=== PATIENT | male | born 2000 | race Caucasian/White ===

== ENCOUNTER 2020-07-16 08:07 | Emergency (ER) | payer OTHER, SELFPAY ==
--- NOTE | ~2020-07-16 | XR_ITS ---
EXAMINATION: XR chest 1V portable INDICATION: Cough and fever TECHNIQUE: Portable AP chest at 0903 hours COMPARISON: 09/23/2016 FINDINGS: The lungs are free of acute opacities. There is no pleural effusion or pneumothorax. The ca rdiomediastinal silhouette is normal. The visualized osseous structures are unremarkable. IMPRESSION: 1. No acute cardiopulmonary abnormality. Reviewed, dictated and finalized at location A.
[2020-07-16 08:15] VITALS: BP 159/88; PULSE 88; RESP 18; TEMP 37.2; O2SAT 100
--- NOTE | 2020-07-16 08:36 | ED.URI ---
HPI - URI/Sore Throat General Chief Complaint: Upper Respiratory Infection Stated Complaint: cough with asthma Time Seen by Provider: 07/16/20 08:36 Source: patient Mode of arrival: ambulatory Limitations: no limitations History of Present Illness HPI Narrative: Patient is a 20-year-old male with a history of asthma who presents for evaluation of fever and cough. Patient states he has had 2 weeks of low-grade fever of 99 Fahrenheit and productive cough with green sputum production. No hemoptysis. No chest pain, patient reports mild shortness of breath but no current shortness of breath. Patient reports sore throat. Patient states sick contacts are his daughter and who have similar symptoms. Patient denies any current wheezing. He does have albuterol inhaler at home but is almost out. Patient states he was evaluated at [facility] and was told that he had bronchitis and had no other treatment option given. Related Data Allergies Allergy/AdvReac Type Severity Reaction Status Date / Time No Known Allergies Allergy Unknown Unverified 07/01/17 10:26 Review of Systems Review of Systems: Narrative: CONSTITUTIONAL: Reports fever CARDIOVASCULAR: Denies chest pain RESPIRATORY: Reports cough, denies current shortness of breath GASTROINTESTINAL: Denies abdominal pain SKIN: Denies rash MUSCULOSKELETAL: Denies back pain NEUROLOGIC: Denies headache [facility] Past Medical History Medical History (Updated 07/16/20 @ 09:32 by Nina Nguyen MD) Asthma Social History Social History (Updated 07/16/20 @ 09:00 by Nina Nguyen MD) Smoking status: Never smoker Alcohol intake: never Substance use: never Living arrangements: with family Gender identity (if verbalized by the patient): Male Exam Narrative: Exam Narrative: GENERAL: Awake, alert, conversant HEAD: Normocephalic, atraumatic. EYES: PERRLA and EOMI. ENT: Nares clear, no rhinorrhea or epistaxis. Mucous membranes moist. NECK: Supple. CHEST: No respiratory distress, breathing even and non labored HEART: Regular rate, sinus rhythm ABDOMEN:Non distended, non tender EXTREMITIES: Normal range of motion. No edema. SKIN: Warm, dry, no rash. NEURO:No focal deficits. Alert and oriented x3 Course Vital Signs Vital signs: Vital Signs Temperature 37.2 C 07/16/20 08:15 Pulse Rate 88 07/16/20 08:15 Respiratory Rate 18 07/16/20 08:15 Blood Pressure 159/88 H 07/16/20 08:15 Pulse Oximetry 100 07/16/20 08:15 Temperature 37.2 C 07/16/20 08:15 Pulse Rate 88 07/16/20 08:15 Respiratory Rate 18 07/16/20 08:15 Blood Pressure 159/88 H 07/16/20 08:15 Pulse Oximetry 100 07/16/20 08:15 MDM - URI/Sore Throat MDM Narrative Medical decision making narrative: Patient presented for evaluation of cough, low-grade fever. At the time of assessment, ABCs are intact and vital signs are stable. Patient is not having any acute shortness of breath or evidence of active asthma exacerbation. No nausea, vomiting, thus laboratory results not obtained. Chest x-ray without findings of pneumonia or COVID type features. Strep swab was negative. Patient likely has an unspecified viral URI, we will test for COVID given recent indications in the community. Patient not having severe symptoms at this time. He was advised to continue symptomatic treatment for his asthma, we will try a short dose of steroids, and patient will be discharged home with primary care physician follow-up. Differential Diagnosis Differential diagnosis: Likely upper respiratory infection, sinusitis, viral infection and bronchitis Lab Data Labs: Lab Results 07/16/20 Range/Units 09:25 SARS-CoV-2 RNA (RT-PCR) Pending Strep Screen Presumptive Negative *(Reference Range: Negative)* Imaging Data Radiologist's impression: ITS Impressions Chest X-Ray 07/16/20 09:10 IMPRESSION: 1. No acute cardiopulmonary abnormality.
--- NOTE | 2020-07-16 09:29 | PC.NURSE ---
rn at bedside to collect covid swab.
[2020-07-16 10:11] VITALS: BP 149/93; PULSE 92; RESP 18; TEMP 36.9; O2SAT 99
[2020-07-17 11:39] LABS: SARS-CoV-2 RNA PCR Negative
== END 2020-07-16 10:12 | disposition home or self-care (01) ==
PROVIDERS: Emergency Provider Emergency Medicine
DX: J45.909 Unspecified asthma, uncomplicated (principal); J06.9 Acute upper respiratory infection, unspecified; Z20.828 Contact with and (suspected) exposure to other viral communicable diseases
CPT/HCPCS: 71045; 87081; 87635; 87880; 99283; C9803; U0003

== ENCOUNTER 2024-02-08 21:48 | Emergency (ER) | payer SELFPAY ==
[2024-02-08 22:03] VITALS: BP 134/88; PULSE 82; RESP 16; TEMP 36.6; O2SAT 100
--- NOTE | 2024-02-08 22:06 | ECG_ITS ---
Measurements Intervals [place] Rate: 77 P: 23 WV: 156 QRS: 20 QRSD: 110 T: 18 QT: 345 QTc: 391 Interpretive Statements SINUS RHYTHM NORMAL ELECTROCARDIOGRAM NO PREVIOUS ECG AVAILABLE FOR COMPARISON Electronically Signed On 02-09-2024 12:54:19 CDT by Tobi Magana M.D.
[2024-02-08 22:44] LABS: Basophils Absolute Auto 0.1 K/mm3 (0.0-0.1); Eosinophils Absolute Auto 0.3 K/mm3 (0-0.3); Eosinophils Percent Auto 3.1 % (0-4.4); Hemoglobin 15.7 g/dL (14.0-18.0); Immature Granulocyte Absolute 0.01 K/mm3 (0.00-0.031); Immature Granulocyte Percent A 0.1 % (0-0.5); Lymphocytes Absolute Auto 4.64 K/mm3 (0.9-3.2); Lymphocytes Percent Auto 57.9 % (18.3-44.2); Mean Corpuscular HGB Conc 33.4 g/dl (32-36); Mean Corpuscular Hemoglobin 30.7 pg (26-34); Mean Corpuscular Volume 91.8 fl (80-100); Mean Platelet Volume 9.6 fl (7.4-10.4); Monocytes Absolute Auto 0.6 K/mm3 (0.1-0.6); Monocytes Percent Auto 6.9 % (2.6-8.5); Neutrophils Absolute Auto 2.5 K/mm3 (1.3-6.7); Platelet Count Result 277 k/mm3 (150-375); Red Blood Count 5.12 M/mm3 (4.6-6.20); Red Cell Distribution Width 12.6 % (11.5-14.5)
[2024-02-08 23:15] LABS: Alanine Aminotransferase 33 U/L (6-50); Albumin Level 4.4 g/dL (3.5-5.1); Alkaline Phosphatase 64 U/L (38-126); Anion Gap 6 mmol/L (4-12); Aspartate Amino Transferase 26 U/L (17-59); Bilirubin,Total 0.8 mg/dL (0.2-1.3); Blood Urea Nitrogen 20 mg/dL (9-20); Calcium 9.5 mg/dL (8.4-10.2); Carbon Dioxide 25 mmol/L (22-30); Chloride 105 mmol/L (98-107); Estimated CRCL calculation 136 ml/min; Estimated Glomerular Filt Rate > 60; Glucose 99 mg/dL (65-110); Potassium 4.1 mmol/L (3.4-5.0); Sodium 136 mmol/L (137-145)
[2024-02-08 23:18] LABS: Influenza A QL RT-PCR Negative (Negative); Influenza B QL RT-PCR Negative (Negative); RSV RNA, RT-PCR Negative (Negative); SARS-CoV-2 RNA PCR Negative (Negative)
[2024-02-09 01:55] VITALS: PULSE 72
[2024-02-09 01:57] VITALS: BP 120/84; PULSE 68; RESP 16; O2SAT 100
--- NOTE | 2024-02-09 03:20 | ED.GENADULT ---
HPI - General Adult General Chief complaint: Dizziness Stated complaint: HTN, dizziness Time Seen by Provider: 02/09/24 02:27 History of Present Illness HPI narrative: This is a 23-year-old male with history of anxiety presenting for anxiety attack. Patient says he was driving his car when he started to get palpitations, he became very anxious eventually pulled over. He called EMS brought to hospital via ambulance. At this time the patient is asymptomatic. He has had anxiety attacks in the past. He is also concerning may be dehydrated because he works in [employer]. Related Data Allergies Allergy/AdvReac Type Severity Reaction Status Date / Time No Known Allergies Allergy Unknown Verified 02/09/24 01:58 [facility] Past Medical History Medical History (Updated 02/09/24 @ 03:26 by Ambrocio Fields MD) Asthma Social History Social History (Updated 07/16/20 @ 09:00 by Nina Nguyen MD) Smoking status: Never smoker Alcohol intake: never Substance use: never Living arrangements: with family Gender identity (if verbalized by the patient): Male Exam Narrative: APPEARANCE: No apparent distress. Head: atraumatic. EYES: EOMI, NOSE: Atraumatic NECK: Trachea midline RESPIRATORY: No increased rate of breathing, CTAB CARDIOVASCULAR: RRR, ABDOMINAL: Non-distended MUSCULOSKELETAl: No obvious deformities NEURO: Alert. Moving 4/4 extremities SKIN:: Warm, dry. Normal color PSYCHIATRIC: Normal affect Course Vital Signs Vital signs: Vital Signs Temperature 97.9 F 02/08/24 22:03 Pulse Rate 82 02/08/24 22:03 Respiratory Rate 16 02/08/24 22:03 Blood Pressure 134/88 02/08/24 22:03 Pulse Oximetry 100 02/08/24 22:03 Oxygen Delivery Room Air 02/08/24 22:03 Temperature 97.9 F 02/08/24 22:03 Pulse Rate 68 02/09/24 01:57 Respiratory Rate 16 02/09/24 01:57 Blood Pressure 120/84 02/09/24 01:57 Pulse Oximetry 100 02/09/24 01:57 Oxygen Delivery Room Air 02/08/24 22:03 Medical Decision Making MDM Narrative Medical decision making narrative: -Course: 23-year-old male presenting with an episode of palpitations, lightheadedness and anxiety. Presentation most consistent with an anxiety attack. During the interview the patient's symptoms have all resolved. He has normal vital signs. Laboratory studies and EKG unremarkable. This time patient will be discharged follow-up with primary care physician and given return precautions. -DDX includes but is not limited to: Anxiety attack, dehydration, syncope -Co-morbidities complicating care: Anxiety -Social determinants of health: Works in [employer] -Independent interpretation of studies: Labs reviewed and normal Independent EKG interpretation: Rhythm [sinus], Rate [77], [place] -[normal], [place] -[normal], QRS [narrow], QTC [normal], T waves -[negative for concerning inversions], ST Segments - [Negative for concerning elevations] Final interpretations: [Normal Sinus Rhythm] -Shared decision making / Disposition: Discharge Vital Signs Vital Signs: Vital Signs Temperature 97.9 F 02/08/24 22:03 Pulse Rate 82 02/08/24 22:03 Respiratory Rate 16 02/08/24 22:03 Blood Pressure 134/88 02/08/24 22:03 Pulse Oximetry 100 02/08/24 22:03 Oxygen Delivery Room Air 02/08/24 22:03 Temperature 97.9 F 02/08/24 22:03 Pulse Rate 68 02/09/24 01:57 Respiratory Rate 16 02/09/24 01:57 Blood Pressure 120/84 02/09/24 01:57 Pulse Oximetry 100 02/09/24 01:57 Oxygen Delivery Room Air 02/08/24 22:03 Lab Data 02/08/24 22:14 02/08/24 22:14 Labs: Lab Results 02/08/24 Range/Units 22:14 WBC 8.0 (4.5-10.0) K/mm3 RBC 5.12 (4.6-6.20) M/mm3 Hgb 15.7 (14.0-18.0) g/dL Hct 47.0 (42.0-52.0) % MCV 91.8 (80-100) fl MCH 30.7 (26-34) pg MCHC 33.4 (32-36) g/dl RDW 12.6 (11.5-14.5) % Plt Count 277 (150-375) k/mm3 MPV 9.6 (7.4-10.4) fl Immature Gran %
== END 2024-02-09 03:38 | disposition home or self-care (01) ==
PROVIDERS: Emergency Provider Emergency Medicine; PCP Internal Medicine
DX: F41.1 Generalized anxiety disorder (principal); Z20.822 Contact with and (suspected) exposure to COVID-19
CPT/HCPCS: 36415; 80053; 85025; 87637; 93005; 99284

== ENCOUNTER 2025-04-05 17:03 | Emergency (ER) | payer OTHER, SELFPAY ==
[2025-04-05 17:06] VITALS: BP 130/80; PULSE 77; RESP 16; TEMP 36.9; O2SAT 100
--- OUTSIDE RECORDS SUMMARY | 2025-04-05 17:06 | XMS_ITS | Clinical Summary ---
Author Organization [facility] Address [address] [place] [address] Phone Care Team Providers Care Mortgage Collector Name Role Phone Provider, None Primary Care Provider Unavailabl e Allergies Active Allergy Reactions Criticality Noted Date Comments Cephalexin Other (see Comments) 06/03/2024 Medications albuterol 108 (90 Base) MCG/ACT Aerosol Solution INHALE 2 PUFFS BY MOUTH EVERY 6 HOURS NEEDED FOR WHEEZING 03/03/2023 Active famotidine (PEPCID) 20 MG Tablet Take 1 Tablet by mouth every evening. 14 Tablet 06/18/2023 Active ondansetron (ZOFRAN) 4 MG Tablet Take 1 Tablet by mouth every 8 hours as needed for Nausea - 1st line. 10 Tablet 06/18/2023 Active ibuprofen (MOTRIN) 600 MG Tablet Take 1 Tablet by mouth every 8 hours. 30 Tablet 09/15/2023 Active Social History Tobacco Use Types Packs/Day Years Used Date Smoking Tobacco: Never Tobacco Cessation:Counseling Given: Not Answered Alcohol Use Standard Drinks/Week Comments Not Currently 0 (1 standard drink = 0.6 oz pur e alcohol) Sex and Gender Information Value Date Recorded Sex Assigned at Not on file Legal Sex Male 12:42 AM CDT Gender Identity Not on file Sexual Orientation Not on file Last Filed Vital Signs Vital Sign Reading Time Taken Comments Blood Pressure 122/75 12/23/2024 10:42 AM [employer]ESS BRAKE OPERATOR Pulse 98 12/23/2024 10:42 AM [employer] BRAKE OPERATOR Temperature 38.1 C (100.5 F) 12/23/2024 9:59 AM PRESS BRAKE OPERATOR Respiratory Rate 18 12/23/2024 10:42 AM PRESS BRAKE OPERATOR Oxygen Saturation 99% 12/23/2024 10:42 AM PRESS BRAKE OPERATOR Inhaled Oxygen Concentration - - Weight 99.8 kg (220 lb) 12/23/2024 9:59 AM PRESS BRAKE OPERATOR Height 193 cm (6' 4) 12/23/2024 9:59 AM PRESS BRAKE OPERATOR Body Mass Index 26.78 12/23/2024 9:59 AM PRESS BRAKE OPERATOR Plan of Treatment Health Maintenance Due Date Last Done Comments Hepatitis C Virus (HCV) Screening 1999 Human Papillomavirus (HPV) Immunization (2 - Male 2-dose series) 02/08/2014 08/10/2013 Influenza Immunization (#1) 2024 08/10/2013 SARS-COV-2 Immunization ( season) 2024 Respiratory Syncytial Virus (RSV) Immunization (Adult) (1 - 1-dose 75+ series) 2074 Hepatitis B Immunization Completed 001, 05/25/2001, 06/09/2000, Additional history exists Pneumococcal Immunization Combined Aged Out 05/25/2001 No longer eligible based on patient's age to complete this topic Meningococcal B Immunization Discontinued 07/05/2016 Meningococcal Immunization (ACWY) Completed 07/05/2016, 08/10/2013 DTaP/Tdap/Td Immunization Discontinued 2019, 09/01/2019, 08/10/2013, Additional history exists TdaP Immunization Completed 10/10/2020, , 08/10/2013 Rotavirus Immunization Aged Out No lo nger eligible based on patient's age to complete this topic Insurance [place] [address] Care Teams Mortgage Collector Relationship Specialty Start Date End Date Provider, None [place] PCP - General 10/26/24
--- OUTSIDE RECORDS SUMMARY | 2025-04-05 17:06 | XMS_ITS | Data Portability ---
Author Organization [facility], Main Office Address [address] [place] [address] Care Team Providers Care Cinnamon Grinder Name Role Phone OSWALD VELA Primary Care Provider Assessment No assessment recorded. Plan of Treatment Reminders Order Date Submit Date Provider Last Modified By Organization Details Last Modified Time Details Appointments None recorded. Lab glycohemogl obin, total, blood [address] (Lab), [address] [place], [address], 4 08:08:20 CBC w/ auto diff [address] (Lab), [address] [place], [address], 4 08:08:20 TSH, serum or plasma [address] (Lab), [address] [place], [address], 4 08:08:20 magnesium, serum or plasma [address] (Lab), [address] [place], [address], 4 08:08:20 vitamin B12 + folate, serum or blood [address] (Lab), [address] [place], [address], 4 08:08:20 potassium, serum or plasma [address] (Lab), [address] [place], [address], 4 08:08:21 testosteron e, free, serum [address] (Lab), [address] [place], [address], 4 08:08:20 testosteron e, total, serum [address] (Lab), [address] [place], [address], 4 08:08:20 Referral None recorded. Procedures None recorded. Surgeries None recorded. Imaging None recorded. Medication Orders fluticasone propionate 50 mcg/actuati on nasal spray,suspe nsion 2023 [facility] 435, [address], [address], 11:57:30 cetirizine 10 mg tablet 2023 [facility] 435, [address], [address], 4 11:57:31 Patient TargetsNo targets recorded. Patient Instructions Encounter Date Encounter Id Patient Instructions Last Modified By Organization Details Last Modified Time 02/10/2024 [id number] hair loss education [email or web address] Not available 02/10/2024 11:57:23 Reason for Referral None Reported. Results Created Date Observation Date Name Description Value Unit Range Abnormal Flag Note LastModifiedBy Organization Detail LastModifiedTime 10/18/20 21 10/18/2021 CT, chest , w/ contr ast No observ ation record ed. [id number] [facility] [address], [place], [address], 01/08/2023 15:42:33 10/18/20 21 10/18/2021 XR, chest , 2 view No observ ation record ed. [id number] [facility] (Central Scheduling) [address], [place], [address], 01/08/2023 15:42:33 10/19/20 21 XR, thora cic spine , 3 view [facility] [address] [place], [place] [address] Eveliadorinda harrell Name: CHAPIN ARMAS Access ion #: [id number] Sex: M : 1999 8 Locati on: RA2 Attend ing Physic adela: ELICEO VELA [facility] Physic adela: ELICEO VELA Exam Date: 2020 8:42 AM Exam Name: XR T SPINE 3V Admitt ing Diagno sis(es ): RADIOL OGY REPORT - FINAL EXAM: XR T SPINE 3V HISTOR Y: thorac ic back pain 21-yea r-old male with back pain for 1 week, no known injury . COMPAR MARNIE: None availa ble TECHNI QUE: Three views of the thorac ic spine were perfor med. FINDIN GS: No fractu re or listhe sis are identi fied about the thorac ic spine. There is minima l midtho racic dextro scolio sis. No signif icant degene rative change s. There are calcif ied granul omas in both lungs. IMPRES MIKE: Page 1 of 2 [facility] Endy t Name: CHAPIN ARMAS Access ion #: [id number] Sex: M : 1999 7 Exam Date: 2020 8:42 AM Exam Name: XR T SPINE 3V Admitt ing Diagno sis(es ): No fractu re of the thorac ic spine. Minima l midtho racic dextro scolio sis. Create d and electr onical ly signed by: Omar almeida MD Signed Date: 2020 9:20 AM (CT) Dictat ed by: Omar almeida MD DD: 2020 9:20 AM (CT) DT: 2020 9:20 AM (CT) Page 2 of 2 [id number] [facility] (Imaging) [address] [place], [address], 01/08/2023 15:42:33 10/19/20 21 XR, ribs, unila teral , 3 or more view [facility] [address] [place] [address] [phone] Patien t Name: CHAPIN ARMAS Access ion #: [id number] Sex: M : 1999 7 Locati on: RA2 Attend ing Physic adela: ELICEO VELA Orderi ng Physic adela: ELICEO VELA Exam Date: 2020 8:42 AM Exam Name: XR RIBS LT WO CHEST Admitt ing Diagno sis(es ): RADIOL OGY REPORT - FINAL EXAM: XR RIBS LT WO CHEST HISTOR Y: rib pain 21-yea r-old male with left chest wall pain after coughi ng. COMPAR MARNIE: None availa ble. TECHNI QUE: Three views of the left ribs were perfor med. FINDIN GS: See below. IMPRES MIKE: 1. No eviden ce of acute displa chuy fractu re of the left ribs or clavic le. 2. Old healed fractu re of the left 6th rib latera lly. 3. Multip le bilate ral calcif ied granul omas. Page 1 of 2 [facility] Patidorinda t Name: CHAPIN ARMAS Access ion #: [id number] Sex: M : 1999 7 Exam Date: 2020 8:42 AM Exam Name: XR RIBS LT WO CHEST Admitt ing Diagno sis(es ): Create d and electr onical ly signed by: Omar almeida MD Signed Date: 2020 9:21 AM (CT) Dictat ed by: Omar almeida MD DD: 2020 9:21 AM (CT) DT: 2020 9:21 AM (CT) Page 2 of 2 [id number] [facility] (Imaging) [address] [place], [address], 01/08/2023 15:42:33 Result Notes None recorded. Problems Name Problem SNOMED Code Status Onset Date Resolution Date Notes Provider Name and Address Organization Details Recorded Time Folliculitis 84974255 Active 2021 Not Available [facility] 3 15:41:24 Acute sinusitis 59472831 Active 2021 Not Available [facility] 3 15:41:24 Asthma 549029930 Active 2020 Not Available [facility] 3 15:41:25 Bronchitis 33613952 Active 2021 Not Available [facility] 3 15:41:25 Multiple nodules of lung 214654061 Active 2020 Not Available [facility] 3 15:41:25 Cough 69641082 Active 2021 Not Available [facility] 3 15:41:25 Acute upper respiratory infection 32187960 Active 2021 Not Available [facility] 3 15:41:25 Loss of hair 529468388 Active 2023 DARLYN Amador [address] [facility], [facility] [address], [place], [address] , [facility] [employer] 4 09:32:23 Dizziness 310385181 Active 2023 DARLYN Amador [address] [facility], [facility] [address], [place], [address] , [facility] [employer] [place] [employer] 4 11:47:33 Fatigue 49777207 Active 2023 DARLYN Amador [address], [place], [address] , [facility] 4 11:48:32 Muscle pain 36613246 Active 2023 GERARDO AmadorP [address], [place], [address] , [facility] 4 11:49:20 Dysfunction of eustachian tube 45166663 Active 2023 DARLYN Amador [address], [place], [address] , [facility] 4 11:55:54 Notes:Medical History: COVID infection 09/2021 HSV-1 infection BLL pulmonary nodules AILIN Left 6th rib fracture Dextroscoliosis 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 Procedures Surgical History Date Name Laterality Status Provider Name and Address Organization Details Recorded Time Hernia Surgery completed Not Available [facility] 01/08/2023 15:40:22 Imaging Results None recorded. Procedure Notes None recorded. Medical Equipment None Reported. Medications Name Sig Start Date Stop Date Status Note LastModified by Organization Details LastModified Time cyclobenza christiana 10 mg tablet Take 1 tablet every 12 hours by oral route as needed for 10 days. active Not Available Not Available No t Available prednisone 10 mg tablet Take 1 tablet every day by oral route as directed for 7 days. active Take 40mg on day 1,2; Than 20mg on day 3,4; Than 10mg on day 5,6,7. Take with food, do not take on empty stomach . Not Available Not Available Not Available cetirizine 10 mg tablet Take 1 tablet every day by oral route as directed for 30 days. 2023 active Not Available Not Available Not Avai lable azithromyc in 250 mg tablet TAKE 2 TABLETS (500 MG) BY ORAL ROUTE ONCE DAILY FOR 1 DAY THEN 1 TABLET (250 MG) BY ORAL ROUTE ONCE DAILY FOR 4 DAYS active Not Available Not Available No t Available ibuprofen 800 mg tablet Take 1 tablet every 8 hours by oral route as needed for 7 days. active Take with food, as needed for pain. Not Available Not Available Not Available benzonatat e 200 mg capsule Take 1 capsule every 8 hours by oral route as needed for 5 days. active Not Available Not Available No t Available prednisone 20 mg tablet 09/10 completed Not Available Not Available Not Available dexamethas one 6 mg tablet Take 0.5 tablets twice a day by oral route with meals for 7 days. active Not Available Not Available No t Available penicillin V potassium 500 mg tablet TAKE 1 TABLET BY MOUTH 4 TIMES DAILY FOR 10 DAYS 08/21 completed Not Available Not Available Not Available acetaminop hen 300 mg-codeine 30 mg tablet Take 1 tablet every 8 hours by oral route as needed for 5 days. active Not Available Not Available No t Available triamcinol one acetonide 0.1 % topical cream 09/10 completed Not Available Not Available Not Available benzonatat e 100 mg capsule active Not Available Not Available Not Available cephalexin 500 mg capsule TAKE 1 CAPSULE BY MOUTH TWICE DAILY FOR 7 DAYS active Not Available Not Available No t Available methylpred nisolone 4 mg tablets in a dose pack 09/10 completed Not Available Not Available Not Available albuterol sulfate HFA 90 mcg/actuat ion aerosol inhaler INHALE 2 PUFFS BY MOUTH EVERY 6 HOURS NEEDED FOR WHEEZING active Not Available Not Available No t Available fluticason e propionate 50 mcg/actuat ion nasal spray,susp ension Harrison 1 spray every day by intranas al route as directed for 14 days. 2023 active Not Available Not Available Not Avai lable doxycyclin e hyclate 100 mg tablet Take 1 tablet twice a day by oral route as directed for 7 days. active Not Available Not Available No t Available amoxicilli n 875 mg-potassi um clavulanat e 125 mg tablet Take 1 tablet every 12 hours by oral route as directed for 10 days. active Not Available Not Available No t Available azithromyc in 500 mg tablet TAKE 1 TABLET BY MOUTH ONCE DAILY active Not Available Not Available No t Available cyclobenza christiana 5 mg tablet 09/10 completed Not Available Not Available Not Available ibuprofen 09/10 completed taken PRN pain Not Available Not Available Not Available ID NOW COVID-19 Test Kit TEST DIRECTED TODAY 08/21 completed Not Available Not Available Not Available BinaxNOW COVID-19 Ag Self Test kit Use as Directed on the Package 08/21 completed Not Available Not Available Not Available Vitals Date Recorded Body height Body mass index (BMI) Body weight Body temperature Heart rate Oxygen saturation Oxygen saturation in Arterial blood by Pulse oximetry Systolic And Diastolic Provider Name and Address Organization Details Last Updated DateTime 4 187.96 cm 27.4 kg/m2 57296.5 2 g 98.1 [degF] 76 /min 98 % 98 % 116/70 mm[Hg] Johnny Potter [facility] [employer] 4 11:12:35 Social History Question Answer Notes LastModified by Organizat ion Details LastModified Time Tobacco Smoking Status Never Smoker Not Available [facility] 01/08/2023 15:40:19 Do You Have An Advance Directive? No [id number] Information not available 01/08/2023 Do You Wear A Helmet When Biking? No [id number] Information not available 01/08/2023 In The 14 Days Before Symptom Onset, Have You Had Close Contact With A Laboratory-confirm ed COVID-19 While That Case Was Ill? No [id number] 026 Information not available 01/08/2023 In The 14 Days Before Symptom Onset, Have You Had Close Contact With A Person Who Is Under Investigation For COVID-19 While That Person Was Ill? No [id number] Information not available 01/08/2023 Have There Been Any Changes To Your Family Or Social Situation? No [id number] 026 Information not available 01/08/2023 Are There Any Guns Present In Your Home? No [id number] Information not available 01/08/2023 Do You Use Insect Repellent Routinely? No [id number] 026 Information not available 01/08/2023 Do You Have A Medical Power Of Intake Clerk? No [id number] 026 Information not available 01/08/2023 Do You Have Any Pets? Yes [id number] Information not available 01/08/2023 What Is Your Relationship Status? Single [id number] 026 Information not available 01/08/2023 Do You Use Your Seat Belt Or Car Seat Routinely? Yes [id number] 026 Information not available 01/08/2023 Do You Have Smoke And Carbon Monoxide Detectors In Your Home? Yes [id number].[id number] 026 Information not available 01/08/2023 Are You Passively Exposed To Smoke? No [id number].[id number] 026 Information not available 01/08/2023 Are There Any Smokers In Your House? No [id number].[id number] 026 Information not available 01/08/2023 Do You Participate In Social Media? Yes [id number] 026 Information not available 01/08/2023 Do You Use Sunscreen Routinely? No [id number].[id number] 026 Information not available 01/08/2023 Has Tobacco Cessation Counseling Been Provided? No [id number].[id number] 026 Information not available 01/08/2023 Have You Recently Traveled Abroad? No [id number].[id number] 026 Information not available 01/08/2023 Are You Currently In School? No [id number] 026 Information not available 01/08/2023 Do You Have Any Dietary Restrictions? No [id number].[id number] 026 Information not available 01/08/2023 Sex: Male Functional Status Question Answer Note LastModified by [employer] Details LastModified Time Do you use any illicit or recreational drugs? No [id number] 026 Information not available 01/08/2023 Do you or have you ever used any other forms of tobacco or nicotine? 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 Occasional [id number].[id number] 026 Information not available 01/08/2023 Mental Status Question Answer Note LastModified by [employer] ion Details LastModified Time Do you feel stressed (tense, restless, nervous, or anxious, or unable to sleep at night)? [id number] Information not available 01/08/2023 Family History Relationship Description Onset Age of this Age Resolved Age Notes LastModified by Organization Details LastModified Time Father Hypertensive disorder [id number] Not available 01/08/2023 15:40:22 Medical History No medical history recorded. Immunizations Vaccine Type Date Status Note Provider Nam juan pablo and Address Organization Details Recorded Time Tdap 0 completed Not Available [facility] 01/08/2023 15:42:28 Tdap 9 completed Not Available [facility] 01/08/2023 15:42:28 meningococcal B, OMV 6 completed Not Available [facility] 01/08/2023 15:42:29 meningococcal MCV4P 6 completed Not Available [facility] 01/08/2023 15:42:29 Hep A, unspecified formulation 6 completed Not Available [facility] 01/08/2023 15:42:29 HPV, quadrivalent 3 completed Not Available [facility] 01/08/2023 15:42:29 influenza, unspecified formulation 3 completed Not Available [facility] 01/08/2023 15:42:29 Hep A, unspecified formulation 3 completed Not Available [facility] 01/08/2023 15:42:29 meningococcal MCV4P 3 completed Not Available [facility] 01/08/2023 15:42:29 varicella 3 completed Not Available [facility] 01/08/2023 15:42:29 Tdap 3 completed Not Available [facility] 01/08/2023 15:42:29 Hep B, adolescent or pediatric 1 completed Not Available [facility] 01/08/2023 15:42:29 pneumococcal conjugate PCV 7 1 completed Not Available [facility] 01/08/2023 15:42:29 DTaP 1 completed Not Available [facility] 01/08/2023 15:42:30 IPV 1 completed Not Available [facility] 01/08/2023 15:42:30 varicella 1 completed Not Available [facility] 01/08/2023 15:42:30 Hib-Hep B 0 completed Not Available [facility] 01/08/2023 15:42:30 MMR 0 completed Not Available [facility] 01/08/2023 15:42:30 DTaP 0 completed Not Available [facility] 01/08/2023 15:42:30 DTaP 9 completed Not Available [facility] 01/08/2023 15:42:30 Hib (HbOC) 9 completed Not Available [facility] 01/08/2023 15:42:30 IPV 9 completed Not Available [facility] 01/08/2023 15:42:30 DTaP 9 completed Not Available [facility] 01/08/2023 15:42:30 IPV 9 completed Not Available [facility] 01/08/2023 15:42:30 Hib (HbOC) 9 completed Not Available [facility] 01/08/2023 15:42:31 Hep B, adolescent or pediatric 9 completed Not Available [facility] 01/08/2023 15:42:31 DTaP 3 completed Not Available [facility] 01/08/2023 15:42:31 IPV 3 completed Not Available [facility] 01/08/2023 15:42:31 MMR 3 completed Not Available [facility] 01/08/2023 15:42:31 Hib-Hep B 1 completed Not Available [facility] 01/08/2023 15:42:31 Past Encounters Encounter ID Performer Location Encounter Start Date Encounter Closed Date Diagnosis/Indication Diagnosis SNOMED-CT Code Diagnosis ICD10 Code Diagnosis Note [id number] Oswald Vela MD [facility] [address] [place] [address] 1 09/10/2021 00:00:00 09/10/2021 16:03:03 [id number] Oswald Vela MD [facility] [address] [place] [address] 1 09/27/2021 00:00:00 09/27/2021 15:27:04 [id number] Oswald Vela MD [facility] [place] [address] [place] [address] 1 10/08/2021 00:00:00 10/08/2021 12:42:50 [id number] Oswald Vela MD [facility] [address] [place] [id number] 1 10/18/2021 00:00:00 10/18/2021 16:45:14 [id number] Oswald Vela MD [facility] [address] [place] [address] 1 10/22/2021 00:00:00 10/22/2021 15:20:54 [id number] [facility] Davis [facility] [address] [address] 11/08/2021 00:00:00 11/08/2021 15:16:47 [id number] Oswald Vela MD [facility] [address] [id number] 11/12/2021 00:00:00 11/12/2021 16:44:20 [id number] Oswald Vela MD [address] [address] 12/03/2021 00:00:00 12/03/2021 10:25:37 [id number] Oswald Vela MD [address] [address] 06/04/2022 00:00:00 06/04/2022 17:38:46 [id number] Oswald Vela MD [address] [address] 08/21/2022 00:00:00 08/21/2022 12:05:34 [id number] Oswald Vela MD [address] [address] 02/10/2024 11:00:56 02/10/2024 12:11:57 Dizziness 772457033 R42 Fatigue 55846304 R53.83 R53.81 R53.0 Muscle pain 02159835 M79 .10 Dysfunctio n of eustachian tube 60517766 H69.93 Health Concerns Section Related Observation LastModified by Organization Detai ls LastModified Time None Recorded Concern Status LastModified by Organization Details LastModified Time None Recorded Advance Directives Directive N: Payers Encounter Date Sequence Insurance Name Policy Number Policy Fu Covered Member ID Fu Member ID Guarantor Name 02/10/2024 1 [employer] [place] - DOS ON OR AFTER 2020 (MEDICAID REPLACEMENT - HMO) Chapin Armas [id number] Chapin Armas Notes Date Note Type Note Provider Name and Address Organization Details Recorded Time 02/10/2024 text/html Chapin Armas is a 23 year old male patient of Dr. Vela. He is here today for a hospital follow up. He went to [place] emergency department on _ for dizziness. He was discharged to home. Today he is feeling a little better. He would like to discuss hair loss. He discussed with his hairspring studder, and she recommended getting blood tests to make sure he isn't having any deficiency. Daisy Kent, RECONDITIONING ASSOCIATE [address] [facility], [address] [address], [place], [address], [facility] [employer] 02/10/2024 12:29:24
--- NOTE | 2025-04-05 18:36 | PC.NURSE ---
1802--Patient reporting that he is leaving and will do something else, ambulatory from ED with steady gait
--- OUTSIDE RECORDS SUMMARY | 2025-04-05 18:39 | XMS_ITS | Clinical Summary ---
Author Organization [facility] Address [address] [place] [address] Phone Care Team Providers Care Thermospray Operator Name Role Phone Provider, None Primary Care [...] Comments Blood Pressure 122/75 12/23/2024 10:42 AM CORK PRESSING MACHINE OPERATOR Pulse 98 12/23/2024 10:42 AM CORK PRESSING MACHINE OPERATOR Temperature 38.1 C (100.5 F) 12/23/2024 9:59 AM CORK PRESSING MACHINE OPERATOR Respiratory Rate 18 12/23/2024 10:42 AM CORK PRESSING MACHINE OPERATOR Oxygen Saturation 99% 12/23/2024 10:42 AM CORK PRESSING MACHINE OPERATOR Inhaled Oxygen Concentration - - Weight 99.8 kg (220 lb) 12/23/2024 9:59 AM CORK PRESSING MACHINE OPERATOR Height 193 cm (6' 4) 12/23/2024 9:59 AM CORK PRESSING MACHINE OPERATOR Body Mass Index 26.78 12/23/2024 9:59 AM CORK PRESSING MACHINE OPERATOR Plan of Treatment Health Maintenance Due [...] age to complete this topic Insurance [place] [address] Care Teams Thermospray Operator Relationship Specialty Start Date End Date Provider, None ID PCP - General 10/26/24
== END 2025-04-05 18:36 | disposition left against medical advice (07) ==
PROVIDERS: PCP Internal Medicine
DX: R42 Dizziness and giddiness (principal)
CPT/HCPCS: 99199